=== PATIENT | male | born 1965 | race African-American/Black ===

== ENCOUNTER 2019-05-22 13:38 | Inpatient (IN) | payer OTHER ==
[~2019-05-22] VITALS: Ht 180.3 cm
[2019-05-22 13:40] VITALS: BP 170/86
[2019-05-22 17:10] VITALS: BP 145/83
[2019-05-22 17:25] LABS: BASO # 0.1 10*3/uL (0.0-0.1); BASO % 0.6 % (0.0-1.0); EOS # 0.3 10*3/uL (0.0-0.4); EOS % 2.9 % (1.0-4.0); HEMATOCRIT 42.9 % (42.0-52.0); HEMOGLOBIN 13.7 g/dl (14.0-18.0); LYMPH % 22.6 % (27.0-41.0); MEAN CELL VOLUME 89.2 fl (80.0-94.0); MEAN CORPUSCULAR HGB 28.5 pg (27.0-31.0); MEAN CORPUSCULAR HGB CONC 31.9 g/dl (33.0-37.0); MEAN PLATELET VOLUME 9.6 fl (9.6-12.3); MONO # 0.6 10*3/uL (0.1-1.0); MONO % 6.6 % (3.0-9.0); NEUT % 67.2 % (47.0-73.0); PLATELET COUNT AUTOMATED 288 10*3/uL (130-400); RED BLOOD COUNT 4.81 10*6/uL (4.50-5.90); RED CELL DISTRI WIDTH 15.6 % (0-14.5); WHITE BLOOD COUNT 8.9 10*3/uL (4.8-10.8)
[2019-05-22 17:35] LABS: INTERNATIONAL NORM RATIO 0.9 (2.0-3.5)
[2019-05-22 17:39] LABS: ALBUMIN 3.4 gm/dl (3.1-4.5); ALKALINE PHOSPHATASE 100 U/L (45-117); BUN 12 mg/dl (7-24); CHLORIDE 101 mmol/L (98-107); CREATININE 0.84 mg/dL (0.70-1.30); POTASSIUM 3.6 mmol/L (3.5-5.1); SGOT/AST 15 IU/L (3-35); SGPT/ALT 20 U/L (12-78); SODIUM 139 mmol/L (136-145); TOTAL PROTEIN 7.3 gm/dL (6.4-8.2)
[2019-05-22 17:40] LABS: ETHYL ALCOHOL < 3.0 mg/dl (<3)
[2019-05-22 20:00] VITALS: BP 138/87
[2019-05-23] VITALS: BP 123/80
[2019-05-23 08:00] VITALS: BP 142/92
[2019-05-23 08:45] LABS: BILIRUBIN NEGATIVE (NEGATIVE); BLOOD NEGATIVE (NEGATIVE); CLARITY SL CLOUDY (CLEAR); COLOR YELLOW (YELLOW); GLUCOSE NEGATIVE (NEGATIVE); KETONE NEGATIVE (NEGATIVE); LEUKO ESTERASE NEGATIVE (NEGATIVE); NITRITE NEGATIVE (NEGATIVE); SPECIFIC GRAVITY >= 1.030 (1.005-1.030); UROBILINOGEN 0.2 E.U./dl (0.2-1.0)
[2019-05-23 08:54] LABS: URINE AMPHETAMINES < 1000 (1000ng/ml); URINE BARBITURATES > 200 (200ng/ml); URINE BENZODIAZEPINES < 200 (200ng/ml); URINE CANNABINOIDS (THC) > 50 (50ng/ml); URINE COCAINE > 300 (300ng/ml); URINE METHADONE < 300 (300ng/ml); URINE OPIATES < 300 (300ng/ml)
[2019-05-23 08:55] LABS: URINE PHENCYCLIDINE < 25 (25ng/ml)
[2019-05-23 09:36] LABS: BACTERIA TRACE; MUCOUS 2+
[2019-05-23 12:00] VITALS: BP 155/88
[2019-05-23 16:00] VITALS: BP 139/81
[2019-05-23 20:00] VITALS: BP 145/91
[2019-05-24] VITALS: BP 134/94
[2019-05-24 08:00] VITALS: BP 126/88
[2019-05-24 12:00] VITALS: BP 137/83
[2019-05-24 16:00] VITALS: BP 118/88
[2019-05-24 20:00] VITALS: BP 123/84
[2019-05-25] VITALS: BP 126/63
[2019-05-25 08:00] VITALS: BP 104/72
[2019-05-25 12:00] VITALS: BP 130/68
== END 2019-05-25 12:10 | disposition home or self-care (01) | DRG 773 ==
LOC: ED 13:38 → 4E 16:36 → EDHOLD 16:36 → 4E 16:53
PROVIDERS: Student in an Organized Health Care Education/Training Program; ADMIT Emergency Medicine
DX: F11.23 Opioid dependence with withdrawal (principal); F17.210 Nicotine dependence, cigarettes, uncomplicated; R63.6 Underweight; R03.0 Elevated blood-pressure reading, without diagnosis of hypertension; D64.9 Anemia, unspecified; E16.2 Hypoglycemia, unspecified; F14.10 Cocaine abuse, uncomplicated; Z71.6 Tobacco abuse counseling; Z68.1 Body mass index [BMI] 19.9 or less, adult

== ENCOUNTER 2019-06-12 17:30 | Emergency (ER) | payer OTHER ==
[~2019-06-12] VITALS: Ht 177.8 cm; Wt 102.1 kg
== END 2019-06-12 18:25 | disposition left against medical advice (07) ==
LOC: ED 17:30
DX: F11.10 Opioid abuse, uncomplicated (principal); F14.10 Cocaine abuse, uncomplicated; F17.210 Nicotine dependence, cigarettes, uncomplicated